=== PATIENT | male | born 1995 | race Caucasian/White ===

== ENCOUNTER 2018-09-07 10:45 | Emergency (ER) | payer OTHER ==
[~2018-09-07] VITALS: Ht 165.1 cm; Wt 78.3 kg
[~2018-09-07 10:45] MED LIST: ACET1TAB40 PO; ACET500C5 PO; CEPH-443 PO; IBUP-1542 PO; OFLO5DRO7 RIGHT EAR
[2018-09-07 10:52] VITALS: Ht 165.1 cm; Wt 78.3 kg
[2018-09-07] MEDS ORDERED: KETOROLAC 30 MG INJ IV STA (11:16)
[2018-09-07] MEDS ORDERED: SOD CHLORIDE 0.9% 1,000 ML IV STA (11:16)
[2018-09-07] MEDS ORDERED: morphine 4 MG/ML VIAL IV STA (11:16)
[2018-09-07] MEDS ORDERED: ONDANSETRON 4 MG INJ IV STA (11:16)
[2018-09-07] MEDS ORDERED: ACETAMINOPHEN 500 MG TAB PO STA (11:16)
--- NOTE | 2018-09-07 14:07 | ERD ---
ER Documentation Chief Complaint Chief Complaint body pain and weakness since last night; no bm x 24 hours HPI 23-year-old male is here presents complaining of fever, fatigue, weakness, and body pain that began last night. Also states he has bilateral flank pain. No nausea vomiting or diarrhea. He states he has not had a bowel movement for 24 hours. No testicular pain. No dysuria hematuria frequency. Has not taken medications for his symptoms. ROS All systems reviewed and are negative except as per history of present illness. Medications Home Meds Active Scripts Acetaminophen-Codeine* (Acetaminophen-Cod #3*) 300-30 Mg Tab, 1 TAB PO Q4H PRN for PAIN, #14 TAB Prov:VANESSA HARMON MD 11/03/14 Ofloxacin* (Floxin* Otic) 0.3% -10 Ml Soln, 5 DROP RIGHT EAR BID for 10 Days, BOTTLE Prov:VANESSA HARMON MD 11/03/14 Cephalexin* (Keflex*) 500 Mg Capsule, 500 MG PO QID for 7 Days, CAP Prov:VANESSA HARMON MD 11/03/14 Allergies Allergies: Coded Allergies: No Known Allergy (Unverified , 03/31/12) PMhx/Soc History of Surgery: No Anesthesia Reaction: No Hx Neurological Disorder: No Hx Respiratory Disorders: No Hx Cardiac Disorders: No Hx Psychiatric Problems: No Hx Miscellaneous Medical Probl: No Hx Alcohol Use: No Hx Substance Use: No Hx Tobacco Use: No Smoking Status: Never smoker FmHx Family History: No diabetes Physical Exam Vitals Vital Signs Date Temp Pulse Resp B/P (MAP) Pulse Ox O2 O2 Flow FiO2 Time Delivery Rate 09/07/18 103.1 116 28 126/62 96 10:52 (83) Physical Exam INITIAL VITAL SIGNS: Reviewed by me GENERAL: Awake, alert and oriented x 4, well appearing, nontoxic, speaking in full sentences. No acute distress HEAD: Atraumatic NECK: Supple. No masses. Full range of motion. No meningismus. No midline tend erness. EYES: EOMI. PERRL. RESPIRATORY: Clear to auscultation bilaterally. Symmetric chest wall rise. No wheezing or rales. No accessory muscle use. CV: Regular rate and rhythm. No murmurs, rubs, or gallops. ABDOMEN: Soft, non-distended. Nontender. Negative [place]. Negative [place] point tenderness. No CVA tenderness bilaterally. No guarding. No rebound. : Deffered. EXTREMITIES: No clubbing or cyanosis. No edema. Moving all extremities normally. BACK: No midline tenderness to palpation. No step-offs. SKIN: Warm and dry. No rash or petechiae. NEUROLOGIC: Normal mental status and speech. Face is symmetric. Moves all extremities equally. Motor and sensory distally intact. Normal coordination. Ambulates with a strong steady gait. Result Diagram: 09/07/18 1134 09/07/18 1134 Results 24 hrs Laboratory Tests Test 09/07/18 11:34 09/07/18 13:20 White Blood Count 7.5 10^3/ul Red Blood Count 5.17 10^6/ul Hemoglobin 14.9 g/dl Hematocrit 45.3 % Mean Corpuscular Volume 87.6 fl Mean Corpuscular Hemoglobin 28.8 pg Mean Corpuscular Hemoglobin Concent 32.9 g/dl Red Cell Distribution Width 11.9 % Platelet Count 181 10^3/UL Mean Platelet Volume 9.2 fl Immature Granulocytes % 0.300 % Neutrophils % 87.1 % Lymphocytes % 7.7 % Monocytes % 4.6 % Eosinophils % 0.0 % Basophils % 0.3 % Nucleated Red Blood Cells % 0.0 /100WBC Immature Granulocytes # 0.020 10^3/ul Neutrophils # 6.6 10^3/ul Lymphocytes # 0.6 10^3/ul Monocytes # 0.4 10^3/ul Eosinophils # 0.0 10^3/ul Basophils # 0.0 10^3/ul Nucleated Red Blood Cells # 0.0 10^3/ul Sodium Level 137 mmol/L Potassium Level 5.0 mmol/L Chloride Level 100 mmol/L Carbon Dioxide Level 27 mmol/L Anion Gap 10 Blood Urea Nitrogen 12 mg/dl Creatinine 1.05 mg/dl Est Glomerular Filtrat Rate mL/min > 60 mL/min Glucose Level 135 mg/dl Calcium Level 9.4 mg/dl Total Bilirubin 0.6 mg/dl Direct Bilirubin 0.00 mg/dl Indirect Bilirubin 0.6 mg/dl Aspartate Amino Transf (AST/SGOT) 47 IU/L Alanine Aminotransferase (ALT/SGPT) 56 IU/L Alkaline Phosphatase 80 IU/L Total Protein 8.3 g/dl Albumin 4.6 g/dl Globulin 3.70 g/dl Albumin/Globulin Ratio 1.24 Lipase 60 U/L Urine Color YELLOW Urine Clarity CLEAR Urine pH 6.0 Urine Specific [place] 1.012 Urine Ketones NEGATIVE mg/dL Urine Nitrite NEGATIVE mg/dL Urine Bilirubin NEGATIVE mg/dL Urine Urobilinogen NEGATIVE mg/dL Urine Leukocyte Esterase NEGATIVE [place]/ul Urine Hemoglobin NEGATIVE mg/dL Urine Glucose NEGATIVE mg/dL Urine Total Protein NEGATIVE mg/dl Current Medications Medications Dose Sig/Zach Start Time Status Last (Trade) Ordered Route PRN Stop Time Admin Dose Reason Admin Sodium 1,000 ml @ Q1H STAT 09/07/18 DC 09/07/18 Chloride 1,000 mls/hr IV 11:16 11:32 09/07/18 12:15 Morphine 4 mg ONCE STAT 09/07/18 DC 09/07/18 Sulfate IV 11:16 11:32 (morphine) 09/07/18 11:18 Ondansetron 4 mg ONCE STAT 09/07/18 DC 09/07/18 HCl (Zofran IV 11:16 11:32 Inj) 09/07/18 11:18 Ketorolac 30 mg ONCE STAT 09/07/18 DC 09/07/18 Tromethamine IV 11:16 11:32 (Toradol) 09/07/18 11:18 1,000 mg ONCE STAT 09/07/18 DC 09/07/18 Acetaminophen PO 11:16 11:33 (Tylenol 09/07/18 11:18 Tab) Procedures/MDM 23-year-old male presents with fever. No URI symptoms. He has flank pain. Laboratory analysis shows no evidence of acute emergent abnormality. No evidence of significant leukocytosis suggesting systemic infection or severe anemia. No evidence of acute renal or liver failure, no evidence of severe alkalosis or acidosis. CT abdomen and pelvis also unremarkable. Patient felt better after IV fluids and pain medication. He is also given Tylenol here. He should continue to take Tylenol or Motrin at home. Patient counseled regarding my diagnostic impression and care plan. Prior to discharge all questions answered. Pt agrees with treatment plan and understands strict return precautions. Pt is instructed to follow up with primary care provider within 24-48 hours. Precautionary instructions provided including instructions to return to the ER if not improving or for any worsening or changing symptoms or concerns. Departure Diagnosis: Primary Impression: Febrile illness Condition: Stable DAVIDA ADAN PA-C Sep 07, 2018 14:07
[2018-09-07 14:14] VITALS: BP 121/73; PULSE 89; RESP 20
== END 2018-09-07 14:16 | disposition home or self-care (01) ==
LOC: FTE 10:45
DX: R50.9 Fever, unspecified (principal)
CPT/HCPCS: 36415; 74176; 80053; 81003; 83690; 85025; 96374; 96375; J1885; J2270; J2405; J7030; Z7502; Z7610